=== PATIENT | female | born 1970 | race Caucasian/White ===

== ENCOUNTER 2019-06-15 19:36 | Inpatient (IN) | payer SELFPAY ==
[~2019-06-15] VITALS: Ht 167.6 cm; Wt 95.3 kg
[~2019-06-15 19:36] MED LIST: PRILOSEC OTC20 M1; [UNRECOGNIZED DRUG - OTHER]
[2019-06-15 19:40] VITALS: Ht 167.6 cm; Wt 95.3 kg
[2019-06-15 20:03] LABS: BASOPHIL % 0.9 % (0-2); PLATELET COUNT 320 x10^3mcL (130-400)
[2019-06-15 20:04] LABS: RED CELL DISTRIBUTION WIDTH 14.9 % (11.5-14.5)
[2019-06-15 20:10] LABS: CARBON DIOXIDE 27.7 mmol/L (21-32); CHLORIDE SERUM 107 mmol/L (98-107); CREATININE SERUM 0.7 mg/dL (0.6-1.0); GFR1 > 60 mL/min; GLUCOSE SERUM 161 mg/dL (74-106); SODIUM SERUM 140 mmol/L (136-145)
[2019-06-15 20:15] LABS: ALBUMIN 3.4 g/dL (3.4-5.0); ALKALINE PHOSPHATASE 94 U/L (46-116); ALT/SGPT 28 U/L (14-59); AST/SGOT 16 U/L (15-37); BILIRUBIN TOTAL 0.22 mg/dL (0.20-1.00); LIPASE 256 IU/L (73-393); TOTAL PROTEIN, SERUM 7.1 g/dL (6.4-8.2)
[2019-06-15] MEDS ORDERED: FORTAMET500 M1 PO (23:04)
[2019-06-15 23:55] VITALS: BP 112/65
[2019-06-16 00:05] LABS: MAGNESIUM 2.1 mg/dL (1.8-2.4); PHOSPHOROUS 2.3 mg/dL (2.5-4.9)
[2019-06-16 00:15] LABS: FREE T4 1.2 ng/dL (0.76-1.46); FREE THYROXINE INDEX 3.4 ug/dL (1.4-4.5); T4(THYROXINE) 10.2 ug/dL (4.7-13.3)
[2019-06-16 00:22] LABS: CHOLESTEROL/HDL RATIO 5.5
[2019-06-16 00:32] LABS: T3 TOTAL 1.08 ng/mL
[2019-06-16 05:20] VITALS: BP 121/68
[2019-06-16 06:08] LABS: BASOPHIL % 0.2 % (0-2); PLATELET COUNT 273 x10^3mcL (130-400)
[2019-06-16 06:28] LABS: CALCIUM 7.5 mg/dL (8.5-10.1); CARBON DIOXIDE 26.5 mmol/L (21-32); CHLORIDE SERUM 109 mmol/L (98-107); CREATININE SERUM 0.6 mg/dL (0.6-1.0); GFR1 > 60 mL/min; GLUCOSE SERUM 142 mg/dL (74-106); MAGNESIUM 2.1 mg/dL (1.8-2.4); PHOSPHOROUS 2.1 mg/dL (2.5-4.9); SODIUM SERUM 143 mmol/L (136-145)
[2019-06-16 08:19] VITALS: BP 109/69
[2019-06-16 12:40] VITALS: BP 110/70
[2019-06-16 17:08] VITALS: BP 110/71
[2019-06-16 17:40] LABS: UA SPECIFIC GRAVITY 1.015 (1.005-1.035); microscopic required? YES; urine erythrocyte 2+ (NEGATIVE)
[2019-06-16 17:50] LABS: AMPHETAMINE QUAL UR NONE DETECTED (See below)
[2019-06-16 19:18] VITALS: BP 115/75
[2019-06-17 04:44] VITALS: BP 116/78
[2019-06-17 06:15] LABS: BASOPHIL % 0.3 % (0-2); PLATELET COUNT 282 x10^3mcL (130-400)
[2019-06-17 07:01] LABS: CALCIUM 7.5 mg/dL (8.5-10.1); CARBON DIOXIDE 25.2 mmol/L (21-32); CHLORIDE SERUM 109 mmol/L (98-107); CREATININE SERUM 0.6 mg/dL (0.6-1.0); GFR1 > 60 mL/min; GLUCOSE SERUM 129 mg/dL (74-106); MAGNESIUM 2.2 mg/dL (1.8-2.4); PHOSPHOROUS 2.5 mg/dL (2.5-4.9); POTASSIUM SERUM 3.5 mmol/L (3.5-5.1); SODIUM SERUM 143 mmol/L (136-145)
[2019-06-17 07:47] VITALS: BP 119/73
[2019-06-17 08:32] LABS: TOTAL IRON BINDING CAPACITY 311 ug/dL (250-450)
[2019-06-17 08:42] LABS: IRON 20 ug/dL (50-170)
[2019-06-17 09:01] LABS: RED BLOOD CELLS 4.11 M/mm3 (4.10-5.10)
[2019-06-17] MEDS ORDERED: FER300 PO (10:35)
[2019-06-17] MEDS ORDERED: LEVAQUIN500 M1 PO (10:36)
[2019-06-17 10:47] VITALS: BP 119/73
[2019-06-17 11:31] VITALS: BP 120/82
== END 2019-06-17 12:26 | disposition home or self-care (01) | DRG 391 ==
LOC: ED 19:36 → DU 22:38 → MU 22:38 → DU 23:39
PROVIDERS: Emergency Medicine; ADMIT Internal Medicine
DX: K57.20 Diverticulitis of large intestine with perforation and abscess without bleeding (principal); K65.9 Peritonitis, unspecified; N39.0 Urinary tract infection, site not specified; E78.5 Hyperlipidemia, unspecified; E83.51 Hypocalcemia; E11.65 Type 2 diabetes mellitus with hyperglycemia; D64.9 Anemia, unspecified; E83.39 Other disorders of phosphorus metabolism; Z79.84 Long term (current) use of oral hypoglycemic drugs; Z79.899 Other long term (current) drug therapy
CPT/HCPCS: 82962; 84439; G0378; J1200; J1885; J1956; J2270; J2405; J3010; J3490; J7030; Q0092